=== PATIENT | female | born 1960 | race Caucasian/White ===

== ENCOUNTER 2016-11-01 12:17 | Emergency (ER) | payer OTHER ==
[2016-11-01 12:40] VITALS: BP 188/116; PULSE 106; RESP 22; TEMP 98.3; O2SAT 97
[2016-11-01] MEDS ORDERED: IPRATROPIUM/ALBUTEROL 3 ML DEYVIAL IH ONE (13:46)
[2016-11-01] MEDS ORDERED: predniSONE 20 MG TAB PO ONE (13:46)
--- NOTE | 2016-11-01 13:50 | UCPHY ---
H & P Patient Type: New Chief Complaint Nursing Narrative: was seen last wednesday for an URI was put on a Zpack and prednisone, not getting better Time Seen by Provider: 11/01/16 13:47 HPI/ROS: HPI: 56-year-old female presents to urgent care with chief concern at wheezing , persistent cough. After 3 days of URI symptoms patient was placed on a Z-Yuval by her primary care provider 6 days ago. Was also placed on a prednisone taper. She had 20 mg of prednisone today. Reports associated mild shortness of breath and wheezing. Symptoms have persisted including loss of voice yesterday. Denies fever, chills, chest pain, abdominal pain, nausea, vomiting, diarrhea, rash. Has a history of moderate persistent allergy induced asthma. Uses albuterol and Advair at home. Has a history of sarcoidosis ROS:10 point review of systems is negative other than as stated in HPI Source: Patient Exam Limitations: No limitations - Personal History Current Tetanus/Diphtheria Vaccine: Yes Current Tetanus Diphtheria and Acellular Pertussis (TDAP): Yes Tetanus Vaccine Date: < 10 years - Medical/Surgical History Hx Asthma: Yes Hx Chronic Respiratory Disease: No Hx Diabetes: No Hx Cardiac Disease: No Hx Renal Disease: No Hx Cirrhosis: No Hx Alcoholism: No Hx HIV/AIDS: No Hx Splenectomy or Spleen Trauma: No Other PMH: med hx-sarcoidosis, asthma. surg-bladder and tonsilectomy - Family History Significant Family History: No pertinent family hx - Social History Smoking Status: Never smoked Alcohol Use: None Drug Use: None - Physical Exam Exam: Temp 36.8, heart rate 106, respiratory rate 22, blood pressure 188/116, 97% on room air General: Awake, alert, calm, cooperative. No acute distress. Head: Atraumatic. EENT: Conjuctiva mildly injected. TMs intact, without redness or bulging. Nasal mucosa is erythematous with moderate clear discharge. Pharynx mildly erythematous. Uvula midline. No tonsillar abscess or exudates. No frontal or maxillary tenderness to percussion. Respiratory: Breathing unlabored. Lungs clear to auscultation bilaterally. No accessory muscle use. CV: Heart rate regular. S1-S2 present. No murmur. GI: Abdomen soft, nontender. Bowel sounds positive x4 quadrants. : Deferred Skin: Warm, dry, intact. No rashes present. Capillary refill brisk. Musculoskeletal: Full ROM all extremities. Neuro: Alert oriented x3. Strength equal in all 4 extremities. Constitutional: Initial Vital Signs Temperature (C) 36.8 C 11/01/16 12:36 Heart Rate 106 H 11/01/16 12:36 Respiratory Rate 22 H 11/01/16 12:36 Blood Pressure 188/116 H 11/01/16 12:36 O2 Sat (%) 97 11/01/16 12:36 O2 Delivery Mode Room Air Allergies/Adverse Reactions: No Known Allergies Allergy (Verified 11/01/16 12:36) Home Medications: Medication Instructions Recorded Albuterol [Proventil Inhaler HFA 1 - 2 puffs IH Q4H #1 mdi 04/13/16 (*)] Azithromycin [Zithromax 250 mg 1 dose PO DAILY #6 tab 04/13/16 tab(RX)] ADVAIR HFA 230-21 MCG INHALER 11/01/16 Hrt Base 11/01/16 predniSONE 11/01/16 predniSONE 20 mg PO DAILY #15 tab 11/01/16 Medical Decision Making - Diagnostics Imaging: PA AND LATERAL CHEST NOVEMBER 01, 2016 INDICATION: Shortness of breath and cough. COMPARISON: April 13, 2016. FINDINGS: The lungs are clear. Heart and mediastinum are normal. Bones and soft tissues are normal. There is no consolidation or effusion. No pneumothorax or pneumomediastinum. No fracture. IMPRESSION: Nothing acute radiographically. Dictated By: iDana Bui MD ED Course/Re-evaluation: Stable 56-year-old presents to urgent care with ongoing wheezing and cough. Symptoms are viral in nature. Lungs are notable for wheezes throughout however there are no rales or rhonchi. 97% on room air. She is given 40 mg of prednisone here today to make a total of 60 mg that she will had today. I will continue her prednisone and have her follow up with entomology teacher. She has inhalers and nebulizer at home. She is in no respiratory distress. She is stable for discharge. Differential Diagnosis: Differential diagnosis includes but is not limited to URI, asthma exacerbation, pneumonia, sarcoidosis flare - Data Points Medications Given: Discontinued Medications Albuterol/Ipratropium (Duoneb) 3 ml IH EDNOW ONE Stop: 11/01/16 13:47 Last Admin: 11/01/16 14:05 Dose: 3 ml Prednisone (Prednisone) 40 mg PO EDNOW ONE Stop: 11/01/16 13:47 Last Admin: 11/01/16 14:05 Dose: 40 mg Departure - Departure Disposition: Home, Routine, Self-Care Clinical Impression: Asthma, Upper respiratory infection Instructions: Upper Respiratory Infection (ED) Additional Instructions: Plan: X-ray appears negative for evidence of pneumonia. Final report pending. If there further findings on x-ray at time of final radiology dictation, you will be notified promptly Prednisone as prescribed Use your albuterol inhaler and your Advair inhaler as prescribed by your primary care provider/entomology teacher Follow up with her entomology teacher within the next 3 days for recheck without fail --When you call to schedule appointment, please let the office know you are an "ER follow up" appointment" Referrals: JACKELYN CRAMER [Primary Care Provider] - As per Instructions Prescriptions: predniSONE 20 mg PO DAILY #15 tab - PQRS PQRS Measurement: Not applicable
--- NOTE | 2016-11-01 14:24 | DX ---
PA AND LATERAL CHEST NOVEMBER 01, 2016 INDICATION: Shortness of breath and cough. COMPARISON: April 13, 2016. FINDINGS: The lungs are clear. Heart and mediastinum are normal. Bones and soft tissues are normal. T here is no consolidation or effusion. No pneumothorax or pneumomediastinum. No fracture. IMPRESSION: Nothing acute radiographically.
== END 2016-11-01 14:16 | disposition home or self-care (01) ==
LOC: CED 12:17
DX: J45.909 Unspecified asthma, uncomplicated (principal); J06.9 Acute upper respiratory infection, unspecified
CPT/HCPCS: 71020-PO; 99204-PO; G0463-PO

== ENCOUNTER 2018-07-11 06:19 | Emergency (ER) | payer OTHER ==
--- NOTE | 2018-07-11 06:59 | EDPHY ---
H & P Stated Complaint: SOB and high BP Time Seen by Provider: 07/11/18 06:58 HPI/ROS: CHIEF COMPLAINT: Dyspnea HISTORY OF PRESENT ILLNESS: The patient presents to the ED after she woke 3 o' clock this morning with shortness of breath. The patient denies any chest pain. She does have a history of hypertension. She took her blood pressure noted it was elevated at 180. The patient did take her lisinopril. The patient continued to have ongoing hypertension and shortness of breath which prompted her visit to the emergency department this morning. She denies any asymmetric calf pain or swelling. The patient denies fever, cough or congestion. She did report some dyspnea while cleaning out a basement yesterday. REVIEW OF SYSTEMS: A comprehensive 10 point review of systems is otherwise negative aside from elements mentioned in the history of present illness. Source: Patient - Personal History Current Tetanus/Diphtheria Vaccine: Yes Current Tetanus Diphtheria and Acellular Pertussis (TDAP): Yes Tetanus Vaccine Date: < 10 years - Medical/Surgical History Hx Asthma: Yes Hx Chronic Respiratory Disease: No Hx Diabetes: No Hx Cardiac Disease: No Hx Renal Disease: No Hx Cirrhosis: No Hx Alcoholism: No Hx HIV/AIDS: No Hx Splenectomy or Spleen Trauma: No Other PMH: med hx-sarcoidosis, asthma. surg-bladder and tonsilectomy - Social History Smoking Status: Never smoked - Physical Exam Exam: General Appearance: Alert, no distress Eyes: Pupils equal and round no pallor or injection ENT, Mouth: Mucous membranes moist Respiratory: There are no retractions, lungs are clear to auscultation Cardiovascular: Regular rate and rhythm Gastrointestinal: Abdomen is soft and nontender, no masses, bowel sounds normal Neurological: A&O, normal motor function, normal sensory exam, normal cranial nerves Skin: Warm and dry, no rashes Musculoskeletal: Neck is supple nontender Extremities: symmetrical, full range of motion Psychiatric: Patient is oriented X 3, there is no agitation Constitutional: Initial Vital Signs Temperature (C) 37.4 C 07/11/18 06:20 Heart Rate 103 H 07/11/18 06:20 Respiratory Rate 18 07/11/18 06:20 Blood Pressure 199/133 H 07/11/18 06:20 O2 Sat (%) 99 07/11/18 06:20 O2 Delivery Mode Room Air Allergies/Adverse Reactions: No Known Allergies Allergy (Verified 07/11/18 06:23) Home Medications: Medication Instructions Recorded Albuterol [Proventil Inhaler HFA 1 - 2 puffs IH Q4H #1 mdi 04/13/16 (*)] ADVAIR HFA 230-21 MCG INHALER 11/01/16 Lisinopril 07/11/18 Pump Set,Elastomeric Cont 07/11/18 Medical Decision Making - Diagnostics EKG Interpretation: EKG: Complete interpretation has been separately recorded in the link bird archive. Summary impression: Sinus rhythm, rate 87 Imaging Results: Imaging Impressions Chest X-Ray 07/11/18 06:59 Impression: Negative. ED Course/Re-evaluation: The patient presents to the ED after an episode of dyspnea associated with hypertension. The patient had no complaints of chest pain. She arrived here with a blood pressure of 199/130. The patient was given 1 mg of Ativan as she did endorse symptoms of anxiety. Workup in the emergency department demonstrates no evidence of ischemia on her EKG. The patient's troponin is also normal. Chest x-ray demonstrates no evidence of cardiomegaly or pneumonia. The patient was placed on a awake overnight monitor. She did have improvement of her blood pressure in the ED. Re-evaluated the patient at 8:40 a.m. Blood pressure is now 140/100. The patient denies dyspnea. I do feel the patient can safely be discharged at this point time as she is asymptomatic in her blood pressure is currently controlled. She will follow up with her primary care provider for a blood pressure recheck this week. She is discharged home with customary aftercare instructions and return precautions. Differential Diagnosis: Differential diagnosis considered includes congestive heart failure, hypertensive emergency, metabolic abnormality, myocardial infarction, anxiety - Data Points Laboratory Results: Laboratory Results 07/11/18 07:11 07/11/18 07:11 07/11/18 07/11/18 07/11/18 07:22 07:11 07:11 WBC 6.30 10^3/uL 10^3/uL (3.80-9.50) RBC 4.78 10^6/uL 10^6/uL (4.18-5.33) Hgb 14.7 g/dL g/dL (12.6-16.3) Hct 42.3 % % (38.0-47.0) MCV 88.5 fL fL (81.5-99.8) MCH 30.8 pg pg (27.9-34.1) MCHC 34.8 g/dL g/dL (32.4-36.7) RDW 12.9 % % (11.5-15.2) Plt Count 230 10^3/uL 10^3/uL (150-400) MPV 10.2 fL fL (8.7-11.7) Neut % (Auto) 51.0 % % (39.3-74.2) Lymph % (Auto) 29.0 % % (15.0-45.0) Karnes % (Auto) 10.5 % % (4.5-13.0) Eos % (Auto) 8.3 % H % (0.6-7.6) Baso % (Auto) 1.0 % % (0.3-1.7) Nucleat RBC Rel Count 0.0 % % (0.0-0.2) Absolute Neuts (auto) 3.22 10^3/uL 10^3/uL (1.70-6.50) Absolute Lymphs (auto) 1.83 10^3/uL 10^3/uL (1.00-3.00) Absolute Monos (auto) 0.66 10^3/uL 10^3/uL (0.30-0.80) Absolute Eos (auto) 0.52 10^3/uL H 10^3/uL (0.03-0.40) Absolute Basos (auto) 0.06 10^3/uL 10^3/uL (0.02-0.10) Absolute Nucleated RBC 0.00 10^3/uL 10^3/uL (0-0.01) Immature Gran % 0.2 % % (0.0-1.1) Immature Gran # 0.01 10^3/uL 10^3/uL (0.00-0.10) Sodium 140 mEq/L mEq/L (135-145) Potassium 4.6 mEq/L mEq/L (3.3-5.0) Chloride 109 mEq/L mEq/L (97-110) Carbon Dioxide 24 mEq/l mEq/l (22-31) Anion Gap 7 mEq/L L mEq/L (8-16) BUN 18 mg/dL mg/dL (7-23) Creatinine 0.7 mg/dL mg/dL (0.6-1.0) Estimated GFR > 60 Glucose 89 mg/dL mg/dL (70-100) Calcium 9.1 mg/dL mg/dL (8.5-10.4) POC Troponin I 0.00 ng/mL ng/mL (0.00-0.08) NT-Pro-B Natriuret Pep 139 pg/mL H pg/mL (0-125) Medications Given: Discontinued Medications Lorazepam (Ativan Injection) 1 mg IVP EDNOW ONE Stop: 07/11/18 07:24 Last Admin: 07/11/18 07:33 Dose: 1 mg Point of Care Test Results: Chemistry 07/11/18 07:22 POC Troponin I 0.00 ng/mL ng/mL (0.00-0.08) Departure - Departure Disposition: Home, Routine, Self-Care Clinical Impression: Hypertension, Dyspnea Condition: Good Instructions: Chronic Hypertension (ED) Additional Instructions: 1. Please schedule a follow-up appointment with your primary care provider for a blood pressure recheck in the next 1-2 days. 2. Return to the ED for markedly worsening symptoms, chest pain or other concerns. Referrals: JACKELYN CRAMER [Primary Care Provider] - As per Instructions
[2018-07-11] MEDS ORDERED: LORazepam 2 MG/ML INJ IVP ONE (07:23)
[2018-07-11 07:26] LABS: PLATELET COUNT 230 10^3/uL (150-400)
--- NOTE | 2018-07-11 07:28 | CPEKG ---
Test Reason : OPEN Blood Pressure : / mmHG Vent. Rate : 087 BPM Atrial Rate : 087 BPM P-R Int : 149 ms QRS Dur : 076 ms QT Int : 374 ms P-R-T Axes : 015 011 050 degrees QTc Int : 450 ms Sinus rhythm Confirmed by Reg Mondragon ([id number]) on 07/11/2018 7:28:20 AM Referred By: Confirmed By:Reg Mondragon
[2018-07-11 09:00] VITALS: BP 153/102
== END 2018-07-11 09:43 | disposition home or self-care (01) ==
DX: R06.00 Dyspnea, unspecified (principal); I10 Essential (primary) hypertension
CPT/HCPCS: 84484-PO; 96374; J2060